=== PATIENT | female | born 1950 | race Two or more races ===

== ENCOUNTER 2025-01-31 13:02 | Inpatient (IN) | payer OTHER ==
[~2025-01-31] VITALS: Ht 160 cm; Wt 46.3 kg
--- NOTE | 2025-01-31 13:19 | ED.PDOC ---
History of Present Illness HPI Comments 74-year-old female brought by paramedics because she is having generalized we will increase along with frequent urination thirst. The landlord went to visit the patient when he found her slightly altered for which she called the paramedics. Blood sugar on towel stretcher arrival was 573. She does have a history of diabetes. Unknown whether she is compliant with her medication. Denies any other symptoms. Chief Complaint: General Weakness Time Seen by MD: 13:14 Reviewed Notes: Nurses Notes, Medications, Allergies Allergies: Coded Allergies: Codeine (Verified Allergy, Unknown, 01/31/25) Information Source: Patient, Emergency Med Personnel Mode of Arrival: EMS Severity: Moderate Timing: Hours Duration: Since onset Past Medical History PAST MEDICAL HISTORY: DM Surgical History: Denies all surgeries CANVASS MANAGER History: No Pertinent CANVASS MANAGER History Family History Family History: Reviewed,noncontributory to illness, No family hx of Cancer, No family hx of DM, No family hx of Heart eliud, No family hx of HTN, No family hx ofKidney eliud, No family hx of Liver eliud, No family hx of Lung leiud, No family hx of Stroke Social History Smoker: Non-Smoker Alcohol: Denies ETOH Use Drugs: Denies Drug Use Constitutional: reports: weakness; denies: chills, diaphoresis, fatigue, fever, malaise, sweats, others EENTM: denies: blurred vision, double vision, ear bleeding, ear discharge, ear drainage, ear pain, ear ringing, eye pain, eye redness, hearing loss, mouth pain, mouth swelling, nasal discharge, nose bleeding, nose congestion, nose pain, photophobia, tearing, throat pain, throat swelling, voice changes, others Respiratory: denies: cough, hemoptysis, orthopnea, SOB at rest, shortness of breath, SOB with excertion, stridor, wheezing, others Cardiovascular: denies: chest pain, dizzy spells, diaphoresis, Dyspnea on exertion, edema, irregular heart beat, left arm pain, lightheadedness, palpitations, PND, syncope, others Gastrointestinal: denies: abdomen distended, abdominal pain, blood streaked bowels, constipated, diarrhea, dysphagia, difficulty swallowing, hematemesis, melena, nausea, poor appetite, poor fluid intake, rectal bleeding, rectal pain, vomiting, others Genitourinary: reports: frequency; denies: abnormal vagina bleeding, burning, dyspareunia, dysuria, flank pain, hematuria, incontinence, pain, , vagina discharge, urgency, others Neurological: denies: dizziness, fainting, headache, left sided numbness, left sided weakness, numbness, paresthesia, pre-existing deficit, right sided numbness, right sided weakness, seizure, speech problems, tingling, tremors, weakness, others Musculoskeletal: denies: back pain, gout, joint pain, joint swelling, muscle pain, muscle stiffness, neck pain, others Integumetry: denies: bruises, change in color, change in hair/nails, dryness, laceration, lesions, lumps, rash, wounds, others Allergic/Immunocompromised: denies: Difficulty Healing, Frequent Infections, Hives, Itching, others Hematologic/Lymphatic: denies: anemia, blood clots, easy bleeding, easy bruising, swollen glands, others Endocrine: denies: excessive hunger, excessive sweating, excessive thirst, excessive urination, flushing, intolerance to cold, intolerance to heat, unexplained weight gain, unexplained weight loss, others Psychiatric: denies: anxiety, bipolar disorder, depression, hopeless, panic disorder, schizophrenia, sleepless, suicidal, others Physical Exam General Appearance: Moderate Distress HEENT: Normal ENT Inspection, Pharynx Normal, TMs Normal Neck: Full Range of Motion, Non-Tender, Normal, Normal Inspection Respiratory: Chest Non-Tender, Lungs Clear, No Accessory Muscle Use, No Respiratory Distress, Normal Breath Sounds Cardiovascular: No Edema, No JVD, No Murmur, No Gallop, Normal Peripheral Pulses, Regular Rate/Rhythm Breast Exam: Deferred Gastrointestinal: No Organomegaly, Non Tender, No Pulsatile Mass, Normal Bowel Sounds, Soft Genitalia: Deferred Pelvic: Deferred Rectal: Deferred Extremities: No calf tenderness, Normal capillary refill, Normal inspection, Normal range of motion, Non-tender, No pedal edema Musculoskeletal : Apperance: Normal Neurologic: Alert, vegetable sorter II-XII nml as Tested, No Motor Deficits, Normal Affect, Normal Mood, No Sensory Deficits Cerebellar Function: NOT DONE Reflexes: NOT DONE Skin: Dry, Normal Color, Warm Peripheral Pulses: 3+ Radial (R), 3+ Radial (L) Lymphatic: No Adenopathy Was a procedure done? Was a procedure done?: No Differential Dx Considerations may include: Hyperglycemia Electrolyte imbalance X-Ray, Labs, Meds, VS Vital Signs Date Time Temp Pulse Resp B/P (MAP) Pulse Ox O2 Delivery O2 Flow Rate FiO2 01/31/25 13:07 98.1 98 18 90/72 98 98.1 Lab Test 01/31/25 13:25 Range/Units White Blood Count 8.2 4.4-10.8 10^3/uL Red Blood Count 3.78 L 4.0-5.20 10^6/uL Hemoglobin 12.1 L 12.2-16.2 g/dL Hematocrit 35.5 L 36.0-46.0 % Mean Corpuscular Volume 93.9 80.0-100.0 fL Mean Corpuscular Hemoglobin 32.0 28.0-32.0 pg Mean Corpuscular Hemoglobin Concent 34.0 32.0-36.0 g/dL Red Cell Distribution Width 16.4 H 11.8-14.3 % Platelet Count 261 140-450 10^3/uL Mean Platelet Volume 8.7 6.9-10.8 fL Neutrophils (%) (Auto) 69.9 37.0-80.0 % Lymphocytes (%) (Auto) 22.3 10.0-50.0 % Monocytes (%) (Auto) 5.9 0.0-12.0 % Eosinophils (%) (Auto) 1.3 0.0-7.0 % Basophils (%) (Auto) 0.6 0.0-2.0 % Neutrophils # (Auto) 5.8 1.6-8.6 10 ^3/uL Lymphocytes # (Auto) 1.8 0.4-5.4 10 ^3/uL Monocytes # (Auto) 0.5 0-1.3 10 ^3/uL Eosinophils # (Auto) 0.1 0-0.8 10 ^3/uL Basophils # (Auto) 0 0-0.2 10 ^3/uL Nucleated Red Blood Cells 0.0 % Sodium Level 128 L 136-145 mmol/L Potassium Level 4.7 3.5-5.1 mmol/L Chloride Level 94 L 98-107 mmol/L Carbon Dioxide Level 21 20-31 mmol/L Anion Gap 13 5-15 Blood Urea Nitrogen 12 9-23 mg/dL Creatinine 1.22 H 0.550-1.02 mg/dL Glomerular Filtration Rate Calc 47 >90 mL/min BUN/Creatinine Ratio 9.8 L 10.0-20.0 Serum Glucose 537 *H 74-106 mg/dL Calcium Level 9.1 8.7-10.4 mg/dL Troponin I High Sensitivity 27 </=34 ng/L Current Medications Medications (Trade) Dose Ordered Sig/Isabell Route Start Time Stop Time Status Last Admin Sodium Chloride 1,000 ml @ 1,000 mls/hr Q1H ONCE IV 01/31/25 13:15 01/31/25 14:14 DC 01/31/25 15:30 Insulin Human Regular (InsuLIN R) 10 units ONCE ONCE IV 01/31/25 13:15 01/31/25 13:16 DC 01/31/25 15:43 Patient alert. Complaining of frequent urination. Vitals stable. Answering questions. Establish intravenous access. Was given fluids. Was given insulin. Explained to the patient. Continue monitoring. Time of 1ST Reevaluation: 13:18 Reevaluation 1ST: Unchanged Patient Education/Counseling: Diagnosis, Treatment, Prognosis Family Education/Counseling: No Family Present SEPSIS Sepsis Screen Physician Orders Urinalysis (01/31/25 13:14) Vital Signs Date Time Temp Pulse Resp B/P (MAP) Pulse Ox O2 Delivery O2 Flow Rate FiO2 01/31/25 13:07 98.1 98 18 90/72 98 98.1 Laboratory Tests Test 01/31/25 13:25 White Blood Count 8.2 10^3/uL (4.4-10.8) Medications Medications Dose Ordered Sig/Isabell Route Start Time Stop Time Status Last Admin Dose Admin Insulin Human Regular 10 units ONCE ONCE IV 01/31/25 13:15 01/31/25 13:16 DC 01/31/25 15:43 Sodium Chloride 1,000 ml @ 1,000 mls/hr Q1H ONCE IV 01/31/25 13:15 01/31/25 14:14 DC 01/31/25 15:30 Departure 1 Departure Time of Disposition: 13:18 Impression: Primary Impression: Uncontrolled diabetes mellitus Qualified Codes: E13.65 - Other specified diabetes mellitus with hyperglycemia Disposition: ADMITTED INPATIENT Admit to: Med Surg Condition: Guarded Critical Care Note Critical Care Time?: Yes (90 min-critical care time only) Stability Stability form required: No Heart Score Heart Score: Heart Score Response (Comments) Value History Slightly Suspicious 0 EKG Normal 0 Age >65 2 Risk Factors >3 or Hx ASHD 2 Troponin Normal limit 0 Total 4 MILENA BOLANOS MD Jan 31, 2025 13:19
[2025-01-31 13:37] LABS: Hematocrit 35.5 % (36.0-46.0); Hemoglobin 12.1 g/dL (12.2-16.2); Mean Corpuscular Hemoglobin 32.0 pg (28.0-32.0); Mean Corpuscular Volume 93.9 fL (80.0-100.0); Nucleated Red Blood Cells % 0.0 %
[2025-01-31 13:49] LABS: Potassium 4.7 mmol/L (3.5-5.1)
[2025-01-31 13:50] LABS: Anion Gap 13 (5-15); Calcium 9.1 mg/dL (8.7-10.4); Carbon Dioxide 21 mmol/L (20-31)
[2025-01-31 13:55] LABS: BUN/Creatinine Ratio 9.8 (10.0-20.0); Blood Urea Nitrogen 12 mg/dL (9-23)
[2025-01-31 13:57] LABS: Chloride 94 mmol/L (98-107); Sodium 128 mmol/L (136-145)
[2025-01-31 14:00] LABS: Glucose 537 mg/dL (74-106)
[2025-01-31] MEDS: SODIUM CHLORIDE 0.9% 1,000 ML IV ONE (15:30)
[2025-01-31] MEDS: InsuLIN REG 1unit/0.01ml Soln (100units/ml) IV ONE (15:43)
[2025-01-31] MEDS ORDERED: DEXTROSE (50%) 50ML SYRG IV PRN (22:00)
[2025-01-31] MEDS ORDERED: ACETAMINOPHEN 325 MG TAB PO PRN (22:00)
[2025-01-31] MEDS ORDERED: ONDANSETRON HCL 4 MG/2 ML VIAL IV PRN (22:00)
[2025-01-31] MEDS: ATORVASTATIN 20 MG TAB PO SCH (23:00)
[2025-01-31] MEDS: ACCU-CHEK COMFORT CURVE STRIP VI SCH (23:58)
[2025-02-01] MEDS: InsuLIN REG 1unit/0.01ml Soln (100units/ml) SC SCH (00:17)
--- NOTE | 2025-02-01 00:53 | DVHHP2 ---
History of Present Illness Reason for Visit: High blood sugar History of Present Illness 74-year-old female presents for evaluation of shortness for breath. Patient reports being compliant with her diabetic pills. She states over the past two days her blood sugars has been reading high. Denies abdominal pain, nausea or vomiting. No dysuria. No fever or chills. Past Medical History Diabetes mellitus, hypertension, thyroid, CHF Past Surgical History Denies Family History Noncontributory Smoke: No ALCOHOL: none Drugs: None Lives: with Family Review of Systems Review of Systems Review of systems are currently negative otherwise addressed in HPI. Allergies: Coded Allergies: Codeine (Verified Allergy, Unknown, 01/31/25) Medications Current Medications Medications Dose Ordered Sig/Isabell Route Start Time Stop Time Status Last Admin Dose Admin Atorvastatin Calcium 20 mg HS PO 01/31/25 22:00 01/31/25 23:00 20 MG Lisinopril 20 mg DAILY PO 02/01/25 10:00 Levothyroxine Sodium 112 mcg QAM@0600 PO 02/01/25 06:00 Ondansetron HCl 4 mg Q4HP PRN IV 01/31/25 22:00 Acetaminophen 650 mg Q6HP PRN PO 01/31/25 22:00 Diagnostic Test (Pha) 1 strip Q6HR 02/01/25 00:00 01/31/25 23:58 1 STRIP Insulin Human Regular Q6HR SC 02/01/25 00:00 02/01/25 00:17 10 UNITS Dextrose 50 ml UD PRN IV 01/31/25 22:00 Exam Vital Signs Vital Signs Date Time Temp Pulse Resp B/P (MAP) Pulse Ox O2 Delivery O2 Flow Rate FiO2 01/31/25 22:04 98.3 90 16 123/98 (106) 96 98.3 01/31/25 16:33 Room Air Exam Gen: 74-year-old female in mild distress Skin: Warm, dry, normal color and texture, no rash. HEENT: Normocephalic atraumatic, mucous membranes moist and pink. Neck: Cervical and supraclavicular nodes normal without enlargement, trachea is midline, thyroid gland is normal without masses. Pulmonary: Clear to auscultation and percussion bilaterally. Cardiac: Regular rate and rhythm. No murmur Abdomen: Soft, nontender, nondistended, bowel sounds present all 4 quadrants, no guarding, no rigidity, no organomegaly. Extremities: No cyanosis, clubbing, no edema Neuro: Cranial nerves II through XII grossly intact, normal affect and speech, no focal motor deficits. Labs/Xrays Labs Test 01/31/25 13:25 Range/Units White Blood Count 8.2 4.4-10.8 10^3/uL Red Blood Count 3.78 L 4.0-5.20 10^6/uL Hemoglobin 12.1 L 12.2-16.2 g/dL Hematocrit 35.5 L 36.0-46.0 % Mean Corpuscular Volume 93.9 80.0-100.0 fL Mean Corpuscular Hemoglobin 32.0 28.0-32.0 pg Mean Corpuscular Hemoglobin Concent 34.0 32.0-36.0 g/dL Red Cell Distribution Width 16.4 H 11.8-14.3 % Platelet Count 261 140-450 10^3/uL Mean Platelet Volume 8.7 6.9-10.8 fL Neutrophils (%) (Auto) 69.9 37.0-80.0 % Lymphocytes (%) (Auto) 22.3 10.0-50.0 % Monocytes (%) (Auto) 5.9 0.0-12.0 % Eosinophils (%) (Auto) 1.3 0.0-7.0 % Basophils (%) (Auto) 0.6 0.0-2.0 % Neutrophils # (Auto) 5.8 1.6-8.6 10 ^3/uL Lymphocytes # (Auto) 1.8 0.4-5.4 10 ^3/uL Monocytes # (Auto) 0.5 0-1.3 10 ^3/uL Eosinophils # (Auto) 0.1 0-0.8 10 ^3/uL Basophils # (Auto) 0 0-0.2 10 ^3/uL Nucleated Red Blood Cells 0.0 % Sodium Level 128 L 136-145 mmol/L Potassium Level 4.7 3.5-5.1 mmol/L Chloride Level 94 L 98-107 mmol/L Carbon Dioxide Level 21 20-31 mmol/L Anion Gap 13 5-15 Blood Urea Nitrogen 12 9-23 mg/dL Creatinine 1.22 H 0.550-1.02 mg/dL Glomerular Filtration Rate Calc 47 >90 mL/min BUN/Creatinine Ratio 9.8 L 10.0-20.0 Serum Glucose 537 *H 74-106 mg/dL Hemoglobin A1c > 14.0 H <5.7 % A1C Calcium Level 9.1 8.7-10.4 mg/dL Troponin I High Sensitivity 27 </=34 ng/L SEPSIS Sepsis Screen Date sepsis recognized/suspect: Jan 31, 2025 Time Sepsis recognized/suspect: 1307 Recent Procedure: No On Antibiotic Therapy: No Respiratory Rate >20: No Heart Rate >90: Yes Temp<36 C (96.8 F) or >38.3 C: No SBP <90 or MAP <65 mmHG: No New Acute Mental Status Change: No Is the patient on CPAP, BIPAP,: No Physician Orders Atorvastatin (Lipitor) (01/31/25 22:00) Lisinopril Tablet (Zestril Tablet) (02/01/25 10:00) Levothyroxine Tablet (Synthroid Tablet) (02/01/25 06:00) Basic Metabolic Panel (02/01/25 04:00) Admit (01/31/25 21:57) Ondansetron Hcl (Zofran) (01/31/25 22:00) Cardiac Diet-2gna,Lofat,Lochol (02/01/25 Breakfast) Condition: Stable (01/31/25 21:57) Acetaminophen Tablet (Tylenol Tablet) (01/31/25 22:00) Bedrest With Bathroom Privileg (01/31/25 21:57) Glucose Blood (Accu-Chek Comfort Curve T (02/01/25 00:00) Insulin R (Human) (Insulin R) (02/01/25 00:00) Dextrose 50% Syringe (01/31/25 22:00) Vital Signs Date Time Temp Pulse Resp B/P (MAP) Pulse Ox O2 Delivery O2 Flow Rate FiO2 01/31/25 22:04 98.3 90 16 123/98 (106) 96 98.3 Laboratory Tests Test 01/31/25 13:25 White Blood Count 8.2 10^3/uL (4.4-10.8) Medications Medications Dose Ordered Sig/Isabell Route Start Time Stop Time Status Last Admin Dose Admin Atorvastatin Calcium 20 mg HS PO 01/31/25 22:00 01/31/25 23:00 20 MG Diagnostic Test (Pha) 1 strip Q6HR 02/01/25 00:00 01/31/25 23:58 1 STRIP Insulin Human Regular Q6HR SC 02/01/25 00:00 02/01/25 00:17 10 UNITS Insulin Human Regular 10 units ONCE ONCE IV 01/31/25 13:15 01/31/25 13:16 DC 01/31/25 15:43 10 UNITS Sodium Chloride 1,000 ml @ 1,000 mls/hr Q1H ONCE IV 01/31/25 13:15 01/31/25 14:14 DC 01/31/25 15:30 1,000 MLS/HR Assessment/Plan Assessment/Plan Assessment Uncontrolled diabetes mellitus Hypertension Plan Admit the patient to Med surge to the hospitalist Hemoglobin A1c Q.6 hours Accu-Cheks Resume home medications Continue treatment per orders. Plan discussed with: Patient My Orders Orders - WASHINGTON STACY Procedure Category Date Status Time Atorvastatin (Lipitor) PHA 01/31/25 In Process 22:00 Lisinopril Tablet PHA 02/01/25 In Process (Zestril Tablet) 10:00 Levothyroxine Tablet PHA 02/01/25 In Process (Synthroid Tablet) 06:00 Basic Metabolic Panel LAB 02/01/25 Logged 04:00 Admit ADMIT 01/31/25 Transmitted 21:57 Ondansetron Hcl PHA 01/31/25 In Process (Zofran) 22:00 Cardiac DIET 02/01/25 Transmitted Diet-2gna,Lofat,Lochol Breakfast Condition: Stable TOMMIE 01/31/25 In Process 21:57 Acetaminophen Tablet PHA 01/31/25 In Process (Tylenol Tablet) 22:00 Bedrest With Bathroom TOMMIE 01/31/25 In Process Privileg 21:57 Glucose Blood PHA 02/01/25 In Process (Accu-Chek Comfort 00:00 Insulin R (Human) PHA 02/01/25 In Process (Insulin R) 00:00 Dextrose 50% Syringe PHA 01/31/25 In Process 22:00 Date of Service: Jan 31, 2025 Billing Provider: WASHINGTON STACY Common Visit Codes: [id number] INP/OBS CARE (MOD) WASHINGTON STACY Feb 01, 2025 00:53
[2025-02-01] MEDS: IOHEXOL 350 MG/ML 100ML IJ ONE (02:02)
[2025-02-01] MEDS: levETIRAcetam 1000 mg/100ml 100 ML IV ONE (02:29)
[2025-02-01 03:08] LABS: Chloride 100 mmol/L (98-107); Potassium 3.7 mmol/L (3.5-5.1)
[2025-02-01 03:09] LABS: Anion Gap 11 (5-15); Calcium 8.9 mg/dL (8.7-10.4); Carbon Dioxide 23 mmol/L (20-31)
[2025-02-01 03:13] LABS: Sodium 134 mmol/L (136-145)
[2025-02-01 03:14] LABS: BUN/Creatinine Ratio 12.8 (10.0-20.0); Blood Urea Nitrogen 15 mg/dL (9-23)
[2025-02-01 03:18] LABS: Glucose 424 mg/dL (74-106)
--- NOTE | 2025-02-01 03:56 | DVH ---
INDICATION: sz, L face/LUE/LLE weak COMPARISON: None TECHNIQUE: CTA head without and with intravenous contrast. CTA neck with intravenous contrast. 3D image postprocessing was performed on a dedicated workstation and images were used for interpretation and reporting. Radiation Dose Information: CT Dose: CTDI volume is 49.68 mGy. Dose-length product is 1412.92 mGy*cm FINDINGS: CT head: Asymmetric hyperattenuation throughout the right lentiform nucleus. No significant associated edema. No additional area concerning for intracranial hemorrhage. No mass effect /midline shift. Mild burden of periventricular white matter hypodensity and global parenchymal volume loss. Symmetri c expansion of the CSF spaces. Incidental cavum septum pellucidum. CTA head: The anterior and posterior circulation are patent. No evidence of large vessel occlusion or high-gra de stenosis. Non flow limiting calcified atherosclerosis of the intracranial ICAs. No evidence of v ascular malformation or aneurysm. The dural sinuses are unremarkable. CTA neck: The visualized thoracic aortic arch and proximal great vessels are patent with non flow-limiting athe rosclerosis. The left common, internal and external carotid arteries are patent. Less than 50% stenosis of the ca rotid bulb and proximal ICA. The right common, internal and external carotid arteries are patent. Less than 50% stenosis of the c arotid bulb and proximal ICA. The cervical segments of the right and left vertebral arteries are within normal limits. Mild interlobular septal thickening in the lung apices. The surrounding soft tissues and osseous str uctures are otherwise unremarkable. IMPRESSION: 1. 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 No significant assoc iated mass effect. 2. No evidence of hemodynamically significant intracranial stenosis, proximal occlusion or aneurysm. 3. No evidence of hemodynamically significant cervical stenosis or dissection. I communicated the above findings with Dr. Escobedo at 5:53 a.m. On 02/01/2025, he communicated understandi ng with positive read back. All CT scans at this medical facility are performed using dose modulation techniques as appropriate t o a performed exam including the following: Automated exposure control was utilized; adjustment of th e MA and/or KV according to patient size; and use of iterative reconstruction technique.
[2025-02-01 04:59] VITALS: BP 100/64; PULSE 79; RESP 17; TEMP 98.3; O2SAT 97
[2025-02-01] MEDS: dilTIAZem 25 MG/5 ML VIAL IV ONE (05:19)
[2025-02-01] MEDS ORDERED: LEVOTHYROXINE SODIUM 112 MCG TAB PO SCH (06:00)
[2025-02-01] MEDS ORDERED: LISINOPRIL 20 MG TAB PO SCH (10:00)
== END 2025-02-01 05:29 | disposition short-term general hospital (02) | DRG 639 ==
LOC: EDBD 13:02 → ER 13:02 → OVERFLOW 21:57
PROVIDERS: ADMIT Internal Medicine Geriatric Medicine; ATTEND Internal Medicine Geriatric Medicine
DX: E11.65 Type 2 diabetes mellitus with hyperglycemia (principal); R35.0 Frequency of micturition; I50.9 Heart failure, unspecified; I11.0 Hypertensive heart disease with heart failure; Z79.899 Other long term (current) drug therapy; Z88.5 Allergy status to narcotic agent
CPT/HCPCS: 36415; 70496; 70498; 80048; 82962; 83036; 84484; 85025; 96360; 99291; 99292; G0378; J1815